=== PATIENT | female | born 1975 | race Caucasian/White ===

== ENCOUNTER 2021-05-26 10:12 | Outpatient (REF) | payer MEDICARE, MEDICAID, SELFPAY ==
[2021-05-26 11:08] LABS: COVID-19 Test Negative (Negative)
== END 2021-05-26 10:13 | disposition home or self-care (01) ==
LOC: HO.LAB 10:12
PROVIDERS: PCP Internal Medicine; Visit Provider Internal Medicine
DX: Z20.822 Contact with and (suspected) exposure to COVID-19 (principal)
CPT/HCPCS: 36415; 87635; C9803

== ENCOUNTER 2022-01-05 10:31 | Outpatient (REF) | payer OTHER, SELFPAY ==
[2022-01-05 10:59] LABS: MANUAL DIFF FLAG NO
[2022-01-05 11:16] LABS: Basophils Absolute Auto 0.1 X10*3/uL (0.0-0.2); Basophils Percent Auto 1.7 % (0-2); Eosinophils Absolute Auto 0.1 X10*3/uL (0.0-0.4); Eosinophils Percent Auto 1.4 % (0-4); Imm Gran Abs Auto 0.02 X10*3/uL (0.00-0.03); Imm Gran Pct Auto 0.6 % (0.0-0.4); Lymphocytes Absolute Auto 1.3 X10*3/uL (1.2-4.9); Lymphocytes Percent Auto 37.9 % (20-40); Mean Corpuscular HGB Conc 32.6 g/dl (31.0-35.0); Mean Corpuscular Hemoglobin 31.7 pg (27.0-33.0); Mean Corpuscular Volume 97.3 fL (80.0-98.0); Mean Platelet Volume 9.7 fL (9.4-12.3); Monocytes Absolute Auto 0.5 X10*3/uL (0.1-1.2); Monocytes Percent Auto 13.7 % (2-11); Neutrophils Absolute Auto 1.6 x10*3/uL (2.0-8.3); Neutrophils Percent Auto 44.7 % (45-73); Platelet Count 269 X10*3/uL (160-400); Red Blood Count 4.42 X10*6/uL (4.20-5.50); Red Cell Distribution Width 12.8 % (11.0-16.0); White Blood Count 3.5 X10*3/uL (4.8-10.8)
[2022-01-05 12:00] LABS: Alanine Aminotransferase 68 U/L (0-31); Albumin Level 4.6 g/dL (3.5-5.0); Alkaline Phosphatase 198 U/L (39-117); Anion Gap 13 (12-20); Aspartate Amino Transferase 38 U/L (5-31); Bilirubin Total 0.4 mg/dL (0.0-1.0); Blood Urea Nitrogen 10 mg/dL (9-16); Calcium 9.9 mg/dL (8.4-10.2); Carbon Dioxide 26 mmol/L (22-29); Chloride 105 mmol/L (96-108); Cholesterol 200 mg/dL; Estimated Glomerular Filt Rate > 60; Glucose Random 83 mg/dL (60-115); Potassium 4.4 mmol/L (3.3-5.1); Sodium 140 mmol/L (135-145); Total Protein 7.6 g/dL (6.5-8.0)
[2022-01-05 12:06] LABS: Free T4 (Free Thyroxine) 0.83 ng/dL (0.71-1.85); Thyroid Stimulating Hormone 4.17 uIU/mL (0.32-4.0)
== END 2022-01-05 10:32 | disposition home or self-care (01) ==
LOC: HO.LAB 10:31
PROVIDERS: PCP Internal Medicine; Visit Provider Internal Medicine
DX: E03.9 Hypothyroidism, unspecified (principal)
CPT/HCPCS: 36415; 80053; 82465; 84439; 84443; 85025

== ENCOUNTER 2022-12-06 12:18 | Outpatient (REF) | payer MEDICARE, MEDICAID, SELFPAY ==
--- NOTE | ~2022-12-06 | US_ITS ---
EXAMINATION: BILATERAL LOWER EXTREMITY DEEP VENOUS ULTRASOUND CLINICAL INFORMATION: Bilateral lower extremity pain COMPARISON: Right lower extremity DVT study 04/29/2010 TECHNIQUE: Duplex Doppler imaging with compression maneuvers were performed of the bilateral lower extremity deep venous systems. FINDINGS: The bilateral visualized common femoral, femoral and popliteal veins demonstrate normal compressibility and color flow without evidence of venous thrombosis. Visualized portions of the bilateral calf veins demonstrate normal color fill-in suggesting patency. There is no evidence of a Stokes's cyst. US/US venous duplex LE BI IMPRESSION: No evidence of deep venous thrombosis involving the bilateral lower extremities.
== END 2022-12-06 12:19 | disposition home or self-care (01) ==
LOC: HO.US 12:18
PROVIDERS: PCP Internal Medicine; Visit Provider Internal Medicine
DX: M79.605 Pain in left leg (principal); R60.0 Localized edema
CPT/HCPCS: 93970

== ENCOUNTER 2025-02-09 09:15 | Outpatient (AMB) | payer MEDICARE, MEDICAID, SELFPAY ==
--- NOTE | 2025-02-09 09:15 | A.OFFPC_ITS ---
Vital Signs 02/09/25 09:23 Height 5 ft 6 in Weight 95.254 kg BMI 33.9 BP 132/76 Respiration 18 Pulse 90 Pulse Source Pulse Oximeter Temp 97.9 F Temp Source Temporal Artery Scan Pulse Oximetry (%) 99 Intake Visit Reasons: Routine - see comments Knowledge Engineer Required: No Accompanied by: Brother Allergies No Known Allergies Allergy (Unverified 02/09/25 09:19) Tobacco use date assessed: 02/09/25 Dental Screening Dental Screen Date: 02/09/25 Did you have a dental visit in the last 12 months?: Yes Did you have a dental problem in the last 6 months where you did not have access to dental care?: No Was dental information given to patient?: Patient has dentist HPI HPI Comments History of Present Illness Details History of Present Illness 49-year-old female with history of hypot hyroidism, PCOS, bipolar disorder, cerebral palsy with spasticity, schizophrenia presenting to the office for routine follow-up. She is accompanied by her brother who is her PRINTED CIRCUIT BOARD [employer] DRAFTSMAN. She lives with her other brother. with scalp dermatitis and left ankle swelling. The scalp issue dates back in time with symptoms of scaling and itchiness treated with yaxh-uek-ivhkmyh lotions and soaking methods. The condition has improved but remains problematic with persistent pruritus leading to self-harm. Additionally, the patient reports swelling in the left ankle, notably more than the right. The swelling varies and is linked to positional changes, with no traumatic event associated. Specific management for this symptom has not been tried apart from observation of dietary factors related to salt intake. The patient's psychiatric history includes anxiety, for which Tegretol is prescribed. Although there is no recognized history of seizures, mood stabilization helps manage anxiety episodes, typically triggered by familial separations. Psychiatric care is overseen by Dr. Becerril. The patient has previously used Depo-Provera injections, discontinued for two years, correlating with beginning menopause. Review of Systems - Dermatologic: Reports scaliness and it edie of the scalp. - Musculoskeletal: Reports swelling in t he left ankle. - Psychiatric: Reports anxiety leading t o self-harm; managed by mood stabilizers. Vital Signs Health Maintenance - Due for colonoscopy, mammogram, and Pa p smear as part of routine health maintenance. - Discussions about reducing salt intake and using compression stockings to manage ankle swelling. Physical Exam Constitutional: Awake and alert, no apparent distress Heart: RRR, S1S2, no murmurs, 1+ ble edema Lungs: CTA bilaterally, no wheezing Extremities: b/l ankles good range of motion, no significant swelling of the j oint itself but 1+ edema bl lower legs Skin: Warm and dry, scaling on the head, recommend tea tree oil for itch and scaling Neuro: Alert and oriented x 3 Assessment and Plan Patient was informed and verbally consented to the use of an ambient scribe for clinic note documentation during this visit. 1. Scalp Dermatitis Tea tree oil is advised for anti-inflammatory properties and relieving pruritus and scaling. Emphasized proper scalp care. 2. Left Ankle Swelling/BLE edema Use compression stockings, elevate legs, and reduce dietary sodium. No bony abnormality noted, full ROM. Can also use ice and NSAIDs prn 3. Anxiety Continued Tegretol with psychiatric review under Dr. Becerril for continued mental health stability. 4. Routine screening Scheduling routine screenings such as mammograms, colonoscopies, and Pap smears to maintain overall health. 5. Seizure history No seizure history per family; Tegretol is maintained for mood stabilization; psychiatric follow-ups to continue. 6. Hypothyroidism TSH w free T4 ordered. Continue levothyroxine 7. Scizophrenia/Bipolar disorder Continue following with Dr. Becerril. Mood stable overall. Continue medications as prescribed Discussion Notes I reviewed the presentation of scalp dermatitis with the patient and recommended tea tree oil applications due to its potential benefits in reducing scaling and itchiness. We discussed the management of her left ankle swelling, emphasizing lifestyle modification, particularly focusing on sodium intake and physical maneuvers such as leg elevation and compression stockings. We discussed her anxiety management's efficacy, maintaining the current regimen with Tegretol and the oversight of Dr. Becerril. We discussed her menopausal status and planned overdue preventive screenings (including a mammogram, colonoscopy, and Pap smear). The implications of Tegretol as a mood stabilizer were clarified, noting no seizure history. Patient follow-up in approximately six months is planned unless adverse events necessitate earlier intervention. Patient Instructions - Apply tea tree oil for scalp itchiness as directed. - Wear compression stockings and elevate legs frequently to reduce ankle swelling. - Follow a low sodium diet. - Continue taking Tegretol as prescribed . - Maintain follow-ups with your psychiat rist, Dr. Becerril. - Schedule recommended health screenings , including mammogram, colonoscopy, and Pap smear. - Return for evaluation in six months or if symptoms worsen. [facility] Medical History (Updated 02/09/25 @ 09:54 by LUPE Concepcion) Spasticity Wheelchair dependence Cerebral palsy PCOS (polycystic ovarian syndrome) Schizophrenia Bipolar disorder Seizure Obesity Autism Hypothyroidism Family History (Updated 02/09/25 @ 09:22 by KAISER Causey) Mother Diabetes COPD (chronic obstructive pulmonary disease) Father Alcoholic cirrhosis of liver Social History (Updated 02/09/25 @ 09:22 by KAISER Causey) Housing: Apartment Alcohol intake: never Patient Tobacco Use Status: Never used Tobacco service: No Current occupational status: disabled Cognitive needs: Yes (wheelchair) Hearing needs: No Vision needs: No Questionnaire PHQ-9 Over the last 2 weeks, how often have you been bothered by any of the following problems? 1. Little interest or pleasure in doing things: not at all 2. Feeling down, depressed, or hopeless: not at all 3. Trouble falling or staying asleep, or sleeping too much: not at all 4. Feeling tired or having little energy: not at all 5. Poor appetite or overeating: not at all 6. Feeling bad about yourself - or that you are a failure or have let yourself or your family down: not at all 7. Trouble concentrating on things, such as reading the newspaper or watching television: not at all 8. Moving or speaking so slowly that other people could have noticed. Or the opposite - being so fidgety or restless that you have been moving around a lot more than usual: not at all 9. Thoughts that you would be better off or of hurting yourself in some way: not at all Total score: 0 Source: Developed by Drs. Scot Biswas, Mervat Lynn, Mian Soto and colleagues, with an educational víctor from [employer]. Thrive Questionnaire Date Thrive assessed: 02/09/25 I am a: Patient What is your living situation today?: I have a steady place to live Within the past 12 months, did the food you bought not last and you didn't have the money to get more?: Never true Within the past 12 months, did you worry whether your food would run out before you got money to buy more?: Never true Do you have trouble paying for medicines?: No Do you have trouble getting transportation to medical appointments?: No Do you have trouble paying your heating and electricity bill?: No Do you have trouble taking care of your child, family member or friend?: No Do you have trouble with day-to-day activities such as bathing, preparing meals, shopping, managing finances, etc.?: No Are you currently unemployed and looking for a job?: No Are you interested in more education?: No Please select the resources that you would like help with: None THRIVE Score: 0 AUDIT C Alcohol Use Questionnaire (AUDIT-C) 1. How often do you have a drink containing alcohol?: Never Total Score: 0 YENNY-7 AMB Questionnaire YENNY-7 Date YENNY - 7 assessed: 02/09/25 Feeling nervous, anxious, or on edge: 3 = Nearly every day Not being able to stop or control worryin = Nearly every day Worrying too much about different things: 3 = Nearly every day Trouble relaxin = Nearly every day Being so restless that it is hard to sit still: 3 = Nearly every day Becoming easily annoyed or irritable: 3 = Nearly every day Feeling afraid as if something awful might happen: 3 = Nearly every day Total YENNY-7 score (0-4 normal; 5-9 mild; 10-14 moderate; 15-21 severe): 21 Source: Developed by Drs. Scot Biswas, Mervat Lynn, Mian Soto and colleagues, with an educational víctor from [employer]. Physical exam (Primary Care) Vital Signs: Last Vital Signs Temp 97.9 F 02/09/25 09:23 Pulse 90 02/09/25 09:23 Resp 18 02/09/25 09:23 BP 132/76 02/09/25 09:23 Pulse Ox 99 02/09/25 09:23 BMI result Body Mass Index 33.9 Tobacco/Smoking Status: Tobacco use Status Tobacco use date assessed 02/09/25 02/09/25 09:20 Patient Tobacco Use Status Never used Tobacco 02/09/25 09:22 PHQ-9: PHQ-9 Score PHQ-9: Total score 0 02/09/25 09:54 Thrive Assessment: Date of Thrive Assessment Date Thrive assessed 02/09/25 02/09/25 09:20 Coding Level of Care Code New Pt Level 4 (10463) Complex EM visit Add On G2211 Diagnoses Hypothyroidism E03.9 Recurrent otitis externa H60.90 Obesity E66.9 Bipolar disorder F31.9 Schizophrenia F20.9 Seborrheic dermatitis of scalp L21.9 Assessment & Plan Assessment & Plan (1) Hypothyroidism: Code(s): E03.9 - Hypothyroidism, unspecified Category: Medical Plan: TSH ordered. Continue levothyroxine (2) Recurrent otitis externa: Code(s): H60.90 - Unspecified otitis externa, unspecified ear Category: Medical Plan: Continue ear drops (3) Obesity: Code(s): E66.9 - Obesity, unspecified Category: Medical Plan: Weight loss efforts encouraged through healthy diet (4) Bipolar disorder: Code(s): F31.9 - Bipolar disorder, unspecified Category: Medical Plan: Stable. Continue following with Psychiatry and continue medications as prescribed (5) Schizophrenia: Code(s): F20.9 - Schizophrenia, unspecified Category: Medical Plan: Stable. Continue following with Psychiatry and continue medications as prescribed (6) Seborrheic dermatitis of scalp: Code(s): L21.9 - Seborrheic dermatitis, unspecified Category: Medical Plan: Recommend trialing tea tree oil. Wash scalp regularly and dry well Plan Follow-up in 6 months. Labs ordered today. Screening mammogram, colonoscopy, and Pap smear ordered Orders: Orders Basic Metabolic Panel Today E03.9 - Hypothyroidism, unspecified, Z13.1 - Encounter for screening for diabetes mellitus, Z13.220 - Encounter for screening for lipoid disorders, Z51.89 - Encounter for other specified aftercare Complete Blood Count Auto Diff Today E03.9 - Hypothyroidism, unspecified, Z13.1 - Encounter for screening for diabetes mellitus, Z13.220 - Encounter for screening for lipoid disorders, Z51.89 - Encounter for other specified aftercare Lipid Panel Today E03.9 - Hypothyroidism, unspecified, Z13.1 - Encounter for screening for diabetes mellitus, Z13.220 - Encounter for screening for lipoid disorders, Z51.89 - Encounter for other specified aftercare TSH reflex Free T4 Today E03.9 - Hypothyroidism, unspecified, Z13.1 - Encounter for screening for diabetes mellitus, Z13.220 - Encounter for screening for lipoid disorders, Z51.89 - Encounter for other specified aftercare Hemoglobin A1c Today E03.9 - Hypothyroidism, unspecified, Z13.1 - Encounter for screening for diabetes mellitus, Z13.220 - Encounter for screening for lipoid disorders, Z51.89 - Encounter for other specified aftercare Liver Panel Today E03.9 - Hypothyroidism, unspecified, Z13.1 - Encounter for screening for diabetes mellitus, Z13.220 - Encounter for screening for lipoid disorders, Z51.89 - Encounter for other specified aftercare MM screening mammo BI Today Z12.31 - Encounter for screening mammogram for malignant neoplasm of breast Referrals CUSTOMER ENGINEERING SPECIALIST Referral Z01.419 - Encounter for gynecological examination (general) (routine) without abnormal findings Gastroenterology Referral Z12.11 - Encounter for screening for malignant neoplasm of colon Patient Instructions: Trial tea tree oil
[2025-02-09 09:23] VITALS: BP 132/76; PULSE 90; RESP 18; TEMP 36.6; O2SAT 99; BMI 33.9
--- OUTSIDE RECORDS SUMMARY | 2025-02-09 10:07 | XMS_ITS | Encounter Summary ---
Author Organization [facility] Address [address] [place] [address] Care Team Providers Care Health Technical Writer Name Role Phone Abhilash Reza MD Primary Care Provider Unava ilable Encounter Details Date Type Department Care Team Description 10/28/2017 Business Doc Medical Records [address] [place] [id number] Abstract, Provider Social History Tobacco Use Types Packs/Day Years Used Date Smoking Tobacco: Never Smokeless Tobacco: Never Alcohol Use Standard Drinks/Week Comments No 0 (1 standard drink = 0.6 oz pur e alcohol) Sex Assigned at Date Recorded Not on file documented as of this encounter Plan of Treatment Not on file documented as of this encounter Visit Diagnoses Not on filedocumented in this encounter Care Teams Health Technical Writer Relationship Specialty Start Date End Date Abhilash Reza MD PCP - General Internal Medicine 01/11/12 documented as of this encounter
--- OUTSIDE RECORDS SUMMARY | 2025-02-09 10:07 | XMS_ITS | Clinical Summary ---
Author Organization [facility] Address [address] [place] [address] Care Team Providers Care Software Business Analyst Name Role Phone Abhilash Reza MD Primary Care Provider Unava ilable Allergies No known active allergies Medications Medication Sig Dispensed Refills Start Date End Date Status aripiprazole (ABILIFY) 15 MG tablet Take 15 mg by mouth daily. 0 Active fluvoxamine (LUVOX) 100 MG tablet Take 100 mg by mouth 2 times daily. 0 Active levothyroxine (LEVOTHROID) 100 MCG tablet Take 100 mcg by mouth daily. 0 Active vitamin D (ERGOCALCIFEROL) 58270 UNIT capsule Take 50,000 Units by mouth Once. Every 2 wks 0 Active clonazepam (KLONOPIN) 2 MG tablet Take 2 mg by mouth at bedtime. 0 Active clonazepam (KLONOPIN) 0.5 MG tablet Take 0.5 mg by mouth every 4 hours as needed. hs 0 Active topiramate (TOPAMAX) 100 MG tablet Take 100 mg by mouth daily. 2 in the morning 0 Active fluvoxamine (LUVOX) 50 MG tablet Take 50 mg by mouth at bedtime. 0 Active oxcarbazepine (TRILEPTAL) 600 MG tablet Take 600 mg by mouth 2 times daily. 0 Active medroxyPROGESTERone (DEPO-PROVERA) 150 MG/ML injection Inject 1 mL into the muscle Every 3 Months. 1 mL 3 10/25/2017 Active Family History Medical History Relation Name Comments CA Breast Negative Hx CA Colon Negative Hx CA Ovarian Negative Hx Social History Tobacco Use Types Packs/Day Years Used Date Smoking Tobacco: Never Smokeless Tobacco: Never Alcohol Use Standard Drinks/Week Comments No 0 (1 standard drink = 0.6 oz pur e alcohol) Sex Assigned at Date Recorded Not on file Last Filed Vital Signs Vital Sign Reading Time Taken Comments Blood Pressure 120/80 10/25/2017 11:15 AM EST Pulse 74 10/25/2017 11:15 AM EST Temperature - - Respiratory Rate 16 10/25/2017 11:15 AM EST Oxygen Saturation - - Inhaled Oxygen Concentration - - Weight 85.4 kg (188 lb 4.8 oz) 10/25/2017 11:15 AM EST Height 154.9 cm (5' 1 ) 10/25/2017 11:15 AM EST Body Mass Index 35.58 10/25/2017 11:15 AM EST Plan of Treatment Health Maintenance Due Date Last Done Comments Covid-19 Vaccine (#1) 1973 DEPRESSION SCREEN 1985 DTAP/TDAP/TD (1 - Tdap) 1992 CHOLESTEROL SCREENING 1993 BASELINE HEALTH EXAM 40-64 2013 MAMMOGRAM 2013 CERVICAL CANCER SCREENING 10/25/20202017, 01/18/2014, 01/09/2011 COLON CANCER SCREENING 2023 SHINGLES VACCINE (1 of 2) 2023 BMI CHECK/ADVISE 10/07/2024 INFLUENZA (Season Ended) 2025 PNEUMOCOCCAL VACCINE FOR HIG H RISK PATIENTS (#1) 2038 Care Teams Software Business Analyst Relationship Specialty Start Date End Date Abhilash Reza MD PCP - General Internal Medicine 01/11/12
--- OUTSIDE RECORDS SUMMARY | 2025-02-09 10:07 | XMS_ITS | Encounter Summary ---
Author Organization [facility] Address [address] [place] [address] Care Team Providers Care Satin Finisher Name Role Phone Abhilash Reza MD Primary Care Provider Unava ilable Encounter Details Date Type Department Care Team Description 01/11/2012 Business Doc Medical Records [address] [place] [id number] Abstract, Provider Social History Tobacco Use Types [...] on filedocumented in this encounter Care Teams Satin Finisher Relationship Specialty Start Date End Date Abhilash Reaz MD PCP - General Internal Medicine 01/11/12 documented as of this encounter
--- OUTSIDE RECORDS SUMMARY | 2025-02-09 10:07 | XMS_ITS | Encounter Summary ---
Author Organization [facility] Address [address] [place] [address] Care Team Providers Care General Administrator Name Role Phone Abhilash Reza MD Primary Care Provider Unava ilable Encounter Details Date Type Department Care Team Description 01/18/2014 Business Doc Medical Records [address] [place] [id number] Abstract, Provider Social History Tobacco Use Types [...] on filedocumented in this encounter Care Teams General Administrator Relationship Specialty Start Date End Date Abhilash Reza MD PCP - General Internal Medicine 01/11/12 documented as of this encounter
--- OUTSIDE RECORDS SUMMARY | 2025-02-09 10:07 | XMS_ITS | Encounter Summary ---
Author Organization [facility] Address [address] [place] [address] Care Team Providers Care Property Supervisor Name Role Phone Abhilash Reza MD Primary Care Provider Unava ilable Encounter Details Date Type Department Care Team Description 08/20/2016 Release of Information Medical Records [address] [place] [id number] Abstract, Provider Social History Tobacco Use Types [...] on filedocumented in this encounter Care Teams Property Supervisor Relationship Specialty Start Date End Date Abhilash Reza MD PCP - General Internal Medicine 01/11/12 documented as of this encounter
== END 2025-02-09 09:47 | disposition home or self-care (01) ==
LOC: HO.HMCHD 09:15
PROVIDERS: PCP Internal Medicine; Visit Provider Physician Assistant
DX: H60.93 Unspecified otitis externa, bilateral (principal); F31.9 Bipolar disorder, unspecified; F20.9 Schizophrenia, unspecified; E03.9 Hypothyroidism, unspecified; E66.9 Obesity, unspecified; L21.9 Seborrheic dermatitis, unspecified

== ENCOUNTER → 2025-02-09 09:15 | Outpatient (BNVA) | payer MEDICARE, MEDICAID, SELFPAY | PROVIDERS: PCP Internal Medicine; Visit Provider Physician Assistant | DX: Z13.89 Encounter for screening for other disorder (principal) | CPT/HCPCS: 99202 ==

== ENCOUNTER 2025-02-09 09:55 | Outpatient (REF) | payer MEDICARE, MEDICAID, SELFPAY ==
[2025-02-09 12:03] LABS: MANUAL DIFF FLAG NO
[2025-02-09 12:12] LABS: Basophils Absolute Auto 0.1 X10*3/uL (0.0-0.2); Basophils Percent Auto 1.2 % (0-2); Eosinophils Absolute Auto 0.1 X10*3/uL (0.0-0.4); Eosinophils Percent Auto 1.2 % (0-4); Hematocrit 41.7 % (37.0-47.0); Hemoglobin 14.1 g/dl (12.0-16.0); Imm Gran Abs Auto 0.01 X10*3/uL (0.00-0.03); Imm Gran Pct Auto 0.2 % (0.0-0.4); Lymphocytes Absolute Auto 1.1 X10*3/uL (1.2-4.9); Lymphocytes Percent Auto 27.7 % (20-40); Mean Corpuscular HGB Conc 33.8 g/dl (31.0-35.0); Mean Corpuscular Hemoglobin 31.7 pg (27.0-33.0); Mean Corpuscular Volume 93.7 fL (80.0-98.0); Mean Platelet Volume 9.9 fL (9.4-12.3); Monocytes Absolute Auto 0.5 X10*3/uL (0.1-1.2); Neutrophils Absolute Auto 2.3 x10*3/uL (2.0-8.3); Neutrophils Percent Auto 57.7 % (45-73); Platelet Count 247 X10*3/uL (160-400); Red Blood Count 4.45 X10*6/uL (4.20-5.50); Red Cell Distribution Width 12.8 % (11.0-16.0)
[2025-02-09 12:20] LABS: Estimated Average Glucose 91 mg/dL; Hemoglobin A1C 107.4258 umol/L; Hemoglobin A1c % 4.8 % (<6.0); Total Hemoglobin (HGBA1C) 3668.7902 umol/L
[2025-02-09 12:46] LABS: Alanine Aminotransferase 36 U/L (0-31); Albumin Level 4.2 g/dL (3.5-5.0); Anion Gap 13 (12-20); Aspartate Amino Transferase 34 U/L (5-31); Bilirubin Direct < 0.2 mg/dL (0.0-0.5); Bilirubin Total 0.2 mg/dL (0.0-1.0); Blood Urea Nitrogen 14 mg/dL (9-16); Calcium 9.2 mg/dL (8.4-10.2); Carbon Dioxide 28 mmol/L (22-29); Chloride 108 mmol/L (96-108); Cholesterol 179 mg/dL (<200); Estimated Glomerular Filt Rate > 60; Glucose Random 90 mg/dL (60-115); HDL Cholesterol 55 mg/dL (>40); LDL Cholesterol Calculated 110 mg/dL (<100); Potassium 4.4 mmol/L (3.3-5.1); Sodium 145 mmol/L (135-145); Total Protein 7.4 g/dL (6.5-8.0); Triglycerides 73 mg/dL (<150)
[2025-02-09 12:49] LABS: TSH reflex Free T4 2.99 uIU/mL (0.32-4.0)
[2025-02-09 16:59] LABS: Alkaline Phosphatase 191 U/L (39-117)
== END 2025-02-09 09:56 | disposition home or self-care (01) ==
LOC: HO.10HDL 09:55
PROVIDERS: Visit Provider Physician Assistant
DX: E03.9 Hypothyroidism, unspecified (principal); Z13.220 Encounter for screening for lipoid disorders; Z13.1 Encounter for screening for diabetes mellitus; Z51.89 Encounter for other specified aftercare
CPT/HCPCS: 36415; 80048; 80061; 80076; 83036; 84443; 85025; 99202

== ENCOUNTER 2025-09-01 09:11 | Outpatient (AMB) | payer MEDICARE, MEDICAID, SELFPAY ==
--- NOTE | 2025-09-01 09:24 | A.OFFPC_ITS ---
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 She is accompanied by her brother who is her SALES SUPPORT ADMINISTRATOR. She lives with her other brother. with scalp dermatitis and left ankle swelling. The scalp issue dates back in time with symptoms of scaling and itchiness treated with [id number] lotions and soaking methods. The condition has improved but remains problematic with persistent pruritus leading to self-harm. Additionally, the patient reports swelling in the left ankle, notably more than the right. The swelling varies and is linked to positional changes, with no traumatic event associated. Specific management for this symptom has not been tried apart from observation of dietary factors related to salt intake. The patient's psychiatric history includes anxiety, for which Tegretol is prescribed. Although there is no recognized history of seizures, mood stabilization helps manage anxiety episodes, typically triggered by familial separations. Psychiatric care is overseen by Dr. Becerril. The patient has previously used Depo-Provera injections, discontinued for two years, correlating with beginning menopause. Concerns: Gained significant weight- 30+ pounds since last visit. Hands/finger swollen. Pain wrists and fingers with full rom Diet same. Exercising at day program (seated exercises- wheezhair bound) Apneic episdoes ROS: see hpi EXAM: Constitutional - Awake and Alert, No apparent distress Eyes - PERRL Cardiovascular - S1S2, RRR, No edema Respiratory - Normal lung expansion, Normal respiratory effort, No respiratory distress, CTA bilaterally Extremities - no calf tenderness bilaterally, no swelling Skin - Warm/Dry. swelling b/l hands Neurological - Alert & oriented x3 Psychological - Appropriate affect [facility] Medical History (Updated 09/01/25 @ 09:46 by LUPE Concepcion) Spasticity Wheelchair dependence Cerebral palsy PCOS (polycystic ovarian syndrome) Schizophrenia Bipolar disorder Seizure Obesity Autism Hypothyroidism Family History (Updated 02/09/25 @ 09:22 by KAISER Causey) Mother Diabetes COPD (chronic obstructive pulmonary disease) Father Alcoholic cirrhosis of liver Social History (Updated 02/09/25 @ 09:22 by KAISER Causey) Housing: Apartment Alcohol intake: never Patient Tobacco Use Status: Never used Tobacco service: No Current occupational status: disabled Cognitive needs: Yes (wheelchair) Hearing needs: No Vision needs: No Questionnaire Thrive Questionnaire Date Thrive assessed: 02/09/25 YENNY-7 AMB Questionnaire YENNY-7 Date YENNY - 7 assessed: 02/09/25 Source: Developed by Drs. Scot Biswas, Mervat Lynn, Mian Soto and colleagues, with an educational víctor from [employer]. Physical exam (Primary Care) Vital Signs: Last Vital Signs Temp 97.1 F 09/01/25 09:29 Pulse 87 09/01/25 09:29 Resp 16 09/01/25 09:29 BP 130/82 09/01/25 09:29 Pulse Ox 97 09/01/25 09:29 Oxygen Delivery Method Room Air 09/01/25 09:29 BMI result Body Mass Index 36.2 Tobacco/Smoking Status: Tobacco use Status Tobacco use date assessed 02/09/25 09/01/25 09:26 Patient Tobacco Use Status Never used Tobacco 09/01/25 09:26 Thrive Assessment: Date of Thrive Assessment Date Thrive assessed 02/09/25 09/01/25 09:26 Coding Level of Care Code Est Pt Level 4 (40923) Complex visit Add On G2211 Diagnoses Sleep apnea G47.30 Bipolar disorder F31.9 Hypothyroidism E03.9 Weight gain R63.5 Assessment & Plan Assessment & Plan (1) Sleep apnea: Code(s): G47.30 - Sleep apnea, unspecified Category: Medical Plan: Sleep study ordered. Referred to pulm (2) Bipolar disorder: Code(s): F31.9 - Bipolar disorder, unspecified Category: Medical Plan: Continue current therapies. Follow with Dr. Becerril as scheduled (3) Hypothyroidism: Code(s): E03.9 - Hypothyroidism, unspecified Category: Medical Plan: TSH ordered. Continue levothyroxine (4) Weight gain: Code(s): R63.5 - Abnormal weight gain Category: Medical Plan: Labs ordered as below. does not appear acutely volume overloaded. Discussed healthy diet lower in calories with increase protein, fruits, vegetables. Decrease intake of refined sugars, simple carbs, highly processed foods. Recommend moderate intensity exercise Plan Labs as below. Follow up as scheduled Orders: Orders Liver Panel 09/01/25 E03.9 - Hypothyroidism, unspecified, E66.9 - Obesity, unspecified, R63.5 - Abnormal weight gain Lipid Panel 09/01/25 E03.9 - Hypothyroidism, unspecified, E66.9 - Obesity, unspecified, R63.5 - Abnormal weight gain Complete Blood Count Auto Diff 09/01/25 E03.9 - Hypothyroidism, unspecified, E66.9 - Obesity, unspecified, R63.5 - Abnormal weight gain IRON PROFILE 09/01/25 E03.9 - Hypothyroidism, unspecified, E66.9 - Obesity, unspecified, R63.5 - Abnormal weight gain NALINI Reflex Titer and Pattern 09/01/25 M25.50 - Pain in unspecified joint, M79.89 - Other specified soft tissue disorders Rheumatoid Factor 09/01/25 M25.50 - Pain in unspecified joint, M79.89 - Other specified soft tissue disorders C Reactive Protein 09/01/25 M25.50 - Pain in unspecified joint, M79.89 - Other specified soft tissue disorders RT home sleep study 09/01/25 G47.30 - Sleep apnea, unspecified Basic Metabolic Panel 09/01/25 E03.9 - Hypothyroidism, unspecified, E66.9 - Obesity, unspecified, R63.5 - Abnormal weight gain Vitamin B12 09/01/25 E03.9 - Hypothyroidism, unspecified, E66.9 - Obesity, unspecified, R63.5 - Abnormal weight gain TSH reflex Free T4 09/01/25 E03.9 - Hypothyroidism, unspecified, E66.9 - Obesity, unspecified, R63.5 - Abnormal weight gain Vitamin D 25-OH Total 09/01/25 E03.9 - Hypothyroidism, unspecified, E66.9 - Obesity, unspecified, R63.5 - Abnormal weight gain Erythrocyte Sedimentation Rate 09/01/25 M25.50 - Pain in unspecified joint, M79.89 - Other specified soft tissue disorders Referrals Pulmonology Referral G47.30 - Sleep apnea, unspecified
[2025-09-01 09:29] VITALS: BP 130/82; PULSE 87; RESP 16; TEMP 36.2; O2SAT 97; BMI 36.2
== END 2025-09-01 09:53 | disposition home or self-care (01) ==
LOC: HO.HMCHD 09:11
PROVIDERS: PCP Physician Assistant; Visit Provider Physician Assistant
DX: G47.30 Sleep apnea, unspecified (principal); F31.9 Bipolar disorder, unspecified; E03.9 Hypothyroidism, unspecified; R63.5 Abnormal weight gain

== ENCOUNTER 2025-09-01 09:56 | Outpatient (REF) | payer MEDICARE, SELFPAY ==
[2025-09-01 12:38] LABS: Alanine Aminotransferase 52 U/L (0-31); Albumin Level 4.6 g/dL (3.5-5.0); Alkaline Phosphatase 195 U/L (39-117); Anion Gap 16 (12-20); Aspartate Amino Transferase 49 U/L (5-31); Blood Urea Nitrogen 7 mg/dL (9-16); Calcium 9.3 mg/dL (8.4-10.2); Carbon Dioxide 22 mmol/L (22-29); Chloride 108 mmol/L (96-108); Cholesterol 189 mg/dL (<200); Estimated Glomerular Filt Rate > 60; HDL Cholesterol 67 mg/dL (>40); Iron 120 mcg/dL (30-160); Percent Iron Saturation 43 % (15-50); Potassium 4.5 mmol/L (3.3-5.1); Sodium 141 mmol/L (135-145); Total Iron Binding Capacity 276 mcg/dL (228-428); Total Protein 8.0 g/dL (6.5-8.0); Triglycerides 63 mg/dL (<150); Unsaturated Iron Binding 156 ug/dL
[2025-09-01 13:27] LABS: Vitamin B12 406 pg/mL (200-900)
[2025-09-06 13:18] LABS: Anti Nuclear Antibody Screen NEGATIVE (NEGATIVE)
== END 2025-09-01 09:57 | disposition home or self-care (01) ==
LOC: HO.10HDL 09:56
PROVIDERS: Visit Provider Physician Assistant
DX: Z01.84 Encounter for antibody response examination (principal); Z13.21 Encounter for screening for nutritional disorder; M79.89 Other specified soft tissue disorders; E03.9 Hypothyroidism, unspecified; E66.9 Obesity, unspecified; M25.50 Pain in unspecified joint
CPT/HCPCS: 36415; 80048; 80061; 80076; 82306; 82607; 83540; 84443; 86038; 86140; 86431